=== PATIENT | female | born 1930 | race Caucasian/White ===

== ENCOUNTER → 2017-09-02 | Outpatient (CLI) | payer OTHER ==
[2016-08-16 06:52] VITALS: BP 144/78
--- NOTE | 2017-09-03 14:39 | MG ---
HISTORY: SCREENING Comparison: Multiple priors dating back to April 28, 2008 FINDINGS: Bilateral CC and MLO projections of the right and left breast were obtained. Scattered fibroglandula r tissue is seen to be present without significant interval change. No suspicious architectural dist ortion, mass or clustered microcalcifications can be observed to suggest malignancy. No skin thicken ing or nipple retraction is appreciated. No pathological lymphadenopathy can be identified. Benign- appearing calcifications are noted within the right and left breast. IMPRESSION: NO RADIOGRAPHIC EVIDENCE OF MALIGNANCY. ACR CATEGORY 2 - benign findings. FOLLOW-UP EXAM 1 YEAR. Diagnostic CAD was utilized and reviewed. * 0 (ZERO) - ASSESSMENT INCOMPLETE; ADDITIONAL IMAGING IS NEEDED. * 1/1 (ONE) - NEGATIVE. * 2/II (TWO) - BENIGN FINDINGS. * 3/III (THREE) - PROBABLY BENIGN FINDING; SHORT INTERVAL FOLLOW-UP SUGGESTED. * 4/IV (FOUR) - SUSPICIOUS ABNORMALITY; BIOPSY SHOULD BE CONSIDERED. * 5/V - HIGHLY SUSPICIOUS OF MALIGNANCY; BIOPSY SHOULD BE PERFORMED. A NEGATIVE X-RAY REPORT SHOULD NOT DELAY BIOPSY IF A DOMINANT OR CLINICALLY SUSPICIOUS MASS IS PRESENT; 4 TO 8 PERCENT OF CANCERS ARE NOT IDENTIFIED BY X-RAY. A NEGA TIVE REPORT MAY REINFORCE THE CLINICAL IMPRESSION. ADENOSIS AND DENSE BREASTS MAY OBSCURE AN UNDERLY ING NEOPLASM. Reported By:
== END ==
LOC: RAD 15:08
PROVIDERS: ATTEND Internal Medicine
DX: Z12.31 Encounter for screening mammogram for malignant neoplasm of breast (principal)
CPT/HCPCS: 77067

== ENCOUNTER 2021-12-01 11:58 | Observation (INO) ==
[2021-12-01] MEDS ORDERED: NS 1,000 ML IV 1,000 ML ONE (14:24)
[2021-12-01] MEDS: NS 1,000 ML IV 1,000 ML IV SCH (14:31)
[2021-12-01 14:41] LABS: BASOPHILS % (AUTO) 0.5 % (0.2-1.0); EOSINOPHILS % (AUTO) 0.5 % (0.9-2.9); HEMOGLOBIN 12.2 g/dL (12.0-16.0); LYMPHOCYTES # (AUTO) 0.9 X10^3/uL (1.3-2.9); LYMPHOCYTES % (AUTO) 15.7 % (21.0-51.0); MEAN CORPUSCULAR HEMOGLOBIN 26.9 pg (27.0-34.0); MEAN CORPUSCULAR VOLUME 81.4 fL (80.0-100.0); MEAN PLATELET VOLUME 8.7 fL (7.4-11.0); MONOCYTES # (AUTO) 0.6 x10^3/uL (0.3-0.8); MONOCYTES % (AUTO) 10.1 % (0.0-13.0); NEUTROPHILS # (AUTO) 4.2 x10^3/uL (2.2-4.8); NEUTROPHILS % (AUTO) 73.2 % (42.0-75.0); RED BLOOD COUNT 4.55 X10^6/uL (3.5-5.4); WHITE BLOOD COUNT 5.7 X10^3/uL (3.6-10.0)
[2021-12-01 14:52] LABS: ALANINE AMINOTRANSFERASE 24 Units/L (12-78); ALBUMIN 3.8 g/dL (3.4-5.0); ALKALINE PHOSPHATASE 43 Units/L (46-116); ASPARTATE AMINO TRANSFERASE 27 Units/L (15-37); BLOOD UREA NITROGEN 43 mg/dL (7-18); CARBON DIOXIDE 25.3 mmol/L (21-32); CHLORIDE 101 mmol/L (98-107); COR NA(FOR HYPERGLY) 139 mmol/L (136-145); CREATININE 2.39 mg/dL (0.55-1.02); ERYTHROCYTE SEDIMENTATION RATE 41 MM/HOUR (0-20); SODIUM 138 mmol/L (136-145); TOTAL PROTEIN 7.9 g/dL (6.4-8.2); eGFR NON BLACK RACES 20 (>60)
[2021-12-01 14:56] LABS: LACTIC ACID 1.9 mmol/L (0.4-2.0)
--- NOTE | 2021-12-01 15:05 | RAD ---
HISTORYAMSSTUDYCHEST, 1 VIEWCOMPARISONNone availableTECHNIQUEChest radiographic imaging, AP portable projection, 1 imageFINDINGSNo cardiomegaly.No focal airspace disease.No pleural effusion.No pneumothorax.No acute osseous abnormality.IMPRESSIONNo imaging findings of acute cardiopulmonary disease.Electronically signed by: Joaquim Day (Dec 01, 2021 15:04:07)
[2021-12-01] MEDS: ZOSYN VIAL 3.375 GRAMS 3.375 G in NS 100 ML IV 100 ML IV SCH ×2 (16:40→22:40)
[2021-12-01 16:52] VITALS: BMI 19.3
[2021-12-01] MEDS ORDERED: ULTRAM PO PRN (17:45)
--- NOTE | 2021-12-01 17:46 | DR.UPDATE ---
H&P Update History and Physical Update: History and Physical reviewed and patient examined. Changes noted: Yes with the following: IS A YEAR OLD PATIENT OF OURS. SHE PRESENTED TO THE OFFICE FOR A FOLLOW UP DUE TO LEFT FOOT/GREAT TOE CELLULITIS. PATIENT BEGAN HAVING REDNESS AND SWELLING TO THE LEFT FOOT ON 11/25/2021. THERE IS ALSO A SKIN TEAR NOTED TO THE LEFT LOWER EXTREMITY. SHE HAS BEEN TAKING BACTRIM DS 1 TABLET BID AND ANTIBIOTIC OINTMENT. SHE DENIES IMPROVEMENT IN SYMPTOMS DESPITE COMPLIANCE WITH MEDICATIONS. PATIENTS DAUGHTER ALSO REPORTS THAT PATIENT HAS BEEN FALLING AT HOME, HAVING HALLUCINATIONS, AND HAS HAD DECREASED ORAL INTAKE. PATIENT WAS RECENTLY STARTED ON DULOXETINE. DECISION WAS MADE TO ADMIT PATIENT TO THE HOSPTIAL FOR FURTHER EVALUATION AND TREATMENT OF LEFT LOWER EXTREMITY CELLULITIS, FAILED OUTPATIENT TREATMENT, DEHYDRATION, AND AMS. PMH INCLUDES: ANEMIA, HTN, OAB, VENOUS INSUFFICIENCY, APPENDECTOMY. ON ADMISSION, HER VITALS WERE 98.6-64-18-98%-137/61. LABS WERE OBTAINED. WBC 5.7, HGB 12.2, HCT 37, SODIUM 138, POTASSIUM 4.6, CHLORIDE 101, BUN 43, CREATININE 2.39, GLUCOSE 121, L ACTIC ACID 1.9, ALK PHOS 43, CRP <0.50, TOTAL PROTEIN 7.9, ALBUMIN 3.8. COVID-19 NEGATIVE. BLOOD CULTURES WERE SET UP. A CHEST XRAY WAS OBTAINED AND REVEALED: No imaging findings of acute cardiopulmonary disease. WE WILL START NORMAL SALINE AT 80 ML/HR, ZOSYN 3.375G IV TID, GENTAMICIN CREAM BID, AND WILL RESUME HER HOME MEDICATIONS APPROPRIATE. WE WILL OBTAIN A BRAIN CT WITHOUT CONTRAST. WE WILL HAVE PHYSICAL THERAPY EVALUATE PATIENT. OTHERWISE, WE PLAN TO FOLLOW UP WITH AM LABS AND CONTINUE TO MONITOR. TIME SPENT ON CLINICAL ASSESSMENT, REVIEWING LABS AND IMAGING, DECISION MAKING, AND DOCUMENTATION WAS GREATER THAN 75 MINUTES. H&P Reviewed: Yes Patient was examined?: Yes
[2021-12-01] MEDS ORDERED: METOPROLOL TARTRATE 50 MG PO SCH (21:00)
[2021-12-01] MEDS: FLUOCINONIDE 0.05% EXT SCH (22:30)
[2021-12-01] MEDS: GENTAMICIN TOPICAL CRM TOP SCH (22:39)
[2021-12-01] MEDS: NORVASC TAB 5 MG PO SCH (22:40)
[2021-12-01] MEDS: LIPITOR TAB 40 MG PO SCH (22:40)
[2021-12-01] MEDS: LOPRESSOR TAB 50 MG PO SCH (22:40)
[2021-12-01 23:51] LABS: BILIRUBIN,URINE NEGATIVE (NEGATIVE); BLOOD/HEMOGLOBIN,URINE 1+ (NEGATIVE); GLUCOSE, URINE NEGATIVE (NEGATIVE); KETONES,URINE NEGATIVE (NEGATIVE); LEUKOCYTE ESTERASE ,URINE NEGATIVE (NEGATIVE); NITRITES,URINE NEGATIVE (NEGATIVE); PROTEIN,URINE 1+ (NEGATIVE); UROBILINOGEN,URINE NORMAL (NORMAL)
[2021-12-01 23:58] LABS: APPEARANCE,URINE CLEAR (CLEAR); BACTERIA,URINE NEGATIVE /HPF (NEGATIVE); COLOR,URINE STRAW (YELLOW); RBC,URINE 0-2 /HPF (0-3); SQUAMOUS EPITHELIAL CELL,UR RARE /HPF (NEGATIVE)
[2021-12-02] MEDS: NS 1,000 ML IV 1,000 ML IV SCH ×3 (04:00→17:28)
[2021-12-02] MEDS: ZOSYN VIAL 3.375 GRAMS 3.375 G in NS 100 ML IV 100 ML IV SCH ×3 (06:15→21:51)
[2021-12-02 06:50] LABS: BASOPHILS % (AUTO) 1.3 % (0.2-1.0); EOSINOPHILS # (AUTO) 0.2 x10^3/uL (0.0-0.2); EOSINOPHILS % (AUTO) 5.2 % (0.9-2.9); HEMATOCRIT 33.7 % (36.0-47.0); HEMOGLOBIN 11.4 g/dL (12.0-16.0); LYMPHOCYTES % (AUTO) 26.9 % (21.0-51.0); MEAN CORPUSCULAR HEMOGLOBIN 27.5 pg (27.0-34.0); MEAN CORPUSCULAR HGB CONC 33.9 g/dL (33.0-35.0); MEAN CORPUSCULAR VOLUME 81.1 fL (80.0-100.0); MEAN PLATELET VOLUME 8.9 fL (7.4-11.0); MONOCYTES # (AUTO) 0.5 x10^3/uL (0.3-0.8); MONOCYTES % (AUTO) 12.6 % (0.0-13.0); RED BLOOD COUNT 4.15 X10^6/uL (3.5-5.4); RED CELL DISTRIBUTION WIDTH 17.9 % (11.6-16.5); WHITE BLOOD COUNT 3.7 X10^3/uL (3.6-10.0)
[2021-12-02 07:06] LABS: ALANINE AMINOTRANSFERASE 21 Units/L (12-78); ALBUMIN 3.2 g/dL (3.4-5.0); ALKALINE PHOSPHATASE 35 Units/L (46-116); ASPARTATE AMINO TRANSFERASE 23 Units/L (15-37); BLOOD UREA NITROGEN 33 mg/dL (7-18); CALCIUM 8.4 mg/dL (8.5-10.1); CARBON DIOXIDE 26.5 mmol/L (21-32); CHLORIDE 106 mmol/L (98-107); CREATININE 1.67 mg/dL (0.55-1.02); SODIUM 141 mmol/L (136-145); TOTAL PROTEIN 6.8 g/dL (6.4-8.2); eGFR NON BLACK RACES 31 (>60)
[2021-12-02] MEDS: LOPRESSOR TAB 50 MG PO SCH ×2 (08:39→20:37)
[2021-12-02] MEDS: GENTAMICIN TOPICAL CRM TOP SCH ×2 (08:39→20:36)
[2021-12-02] MEDS: COZAAR PO SCH (08:39)
[2021-12-02] MEDS: SYNTHROID 88 mcg TAB PO SCH (08:40)
[2021-12-02] MEDS: ZyrTEC TAB 10 MG PO SCH (08:40)
[2021-12-02] MEDS: PLAVIX PO SCH (08:40)
[2021-12-02] MEDS: NORVASC TAB 5 MG PO SCH ×2 (08:40→20:36)
[2021-12-02] MEDS: FLUOCINONIDE 0.05% EXT SCH ×2 (08:57→20:36)
[2021-12-02] MEDS: LIPITOR TAB 40 MG PO SCH (20:38)
[2021-12-03] MEDS ORDERED: ATIVAN INJ 2 MG VIAL ONE (02:36)
[2021-12-03] MEDS: ATIVAN INJ 2 MG VIAL IVP PRN ×2 (02:40→09:38)
[2021-12-03] MEDS: NS 1,000 ML IV 1,000 ML IV SCH (06:23)
[2021-12-03] MEDS: ZOSYN VIAL 3.375 GRAMS 3.375 G in NS 100 ML IV 100 ML IV SCH ×3 (06:24→21:49)
[2021-12-03 06:38] LABS: BASOPHILS % (AUTO) 0.6 % (0.2-1.0); EOSINOPHILS # (AUTO) 0.1 x10^3/uL (0.0-0.2); EOSINOPHILS % (AUTO) 0.9 % (0.9-2.9); HEMATOCRIT 35.2 % (36.0-47.0); HEMOGLOBIN 11.7 g/dL (12.0-16.0); LYMPHOCYTES # (AUTO) 0.7 X10^3/uL (1.3-2.9); MEAN CORPUSCULAR HEMOGLOBIN 26.9 pg (27.0-34.0); MEAN CORPUSCULAR HGB CONC 33.1 g/dL (33.0-35.0); MEAN CORPUSCULAR VOLUME 81.3 fL (80.0-100.0); MEAN PLATELET VOLUME 8.6 fL (7.4-11.0); MONOCYTES # (AUTO) 0.4 x10^3/uL (0.3-0.8); MONOCYTES % (AUTO) 7.6 % (0.0-13.0); NEUTROPHILS # (AUTO) 4.4 x10^3/uL (2.2-4.8); NEUTROPHILS % (AUTO) 78.9 % (42.0-75.0); RED BLOOD COUNT 4.33 X10^6/uL (3.5-5.4); WHITE BLOOD COUNT 5.5 X10^3/uL (3.6-10.0)
[2021-12-03 06:59] LABS: ALANINE AMINOTRANSFERASE 19 Units/L (12-78); ALBUMIN 3.4 g/dL (3.4-5.0); ALKALINE PHOSPHATASE 36 Units/L (46-116); ASPARTATE AMINO TRANSFERASE 24 Units/L (15-37); BLOOD UREA NITROGEN 28 mg/dL (7-18); CALCIUM 8.8 mg/dL (8.5-10.1); CARBON DIOXIDE 24.2 mmol/L (21-32); CHLORIDE 105 mmol/L (98-107); COR NA(FOR HYPERGLY) 142 mmol/L (136-145); CREATININE 1.41 mg/dL (0.55-1.02); SODIUM 142 mmol/L (136-145); TOTAL PROTEIN 7.2 g/dL (6.4-8.2); eGFR NON BLACK RACES 37 (>60)
[2021-12-03] MEDS: FLUOCINONIDE 0.05% EXT SCH ×2 (09:11→21:38)
[2021-12-03] MEDS: LOPRESSOR TAB 50 MG PO SCH ×2 (09:11→21:39)
[2021-12-03] MEDS: COZAAR PO SCH (09:11)
[2021-12-03] MEDS: GENTAMICIN TOPICAL CRM TOP SCH ×2 (09:11→21:39)
[2021-12-03] MEDS: NORVASC TAB 5 MG PO SCH ×2 (09:11→21:39)
[2021-12-03] MEDS: ZyrTEC TAB 10 MG PO SCH (09:12)
[2021-12-03] MEDS: SYNTHROID 88 mcg TAB PO SCH (09:12)
[2021-12-03] MEDS: PLAVIX PO SCH (09:39)
--- NOTE | 2021-12-03 10:26 | PCM.PROG ---
Progress Note - Progress Note for Day of Date of Exam: 12/02/21 - Subjective Subjective: IS CURRENTLY BEING TREATED FOR LEFT LOWER EXTREMITY CELLULITIS, DEHYDRATION, ALTERED MENTAL STATUS, AND GENERALIZED WEAKNESS. TODAY, SHE IS ALERT, LYING IN BED ON MORNING ROUNDS. SHE IS DISORIENTED THIS MORNING, BUT DOES NOT APPEAR TO BE IN ANY DISTRESS. SHE DENIES PAIN OR OTHER COMPLAINTS. STAFF REPORTS THAT SHE DOES HAVE AN UNSTEADY GAIT WHEN AMBULATING AND REQUIRES ASSISTANCE. ON EXAMINATION, HEART IS REGULAR IN RATE AND RHYTHM. BILATERAL LUNGS NOTED WITH DIMINISHED LUNG SOUNDS THROUGHOUT. ABDOMEN IS ROUND, SOFT, AND NON- TENDER WITH NORMAL BOWEL SOUNDS NOTED IN ALL QUADRANTS. LEFT LOWER FOOT AND GREAT TOE NOTED WITH ERYTHEMA AND EDEMA. REDNESS HAS SLIGHTLY DECREASED SINCE ADMISSION. PATIENT ALSO HAS A SMALL LACERATION TO THE POSTERIOR SCALP. NO BLEEDING OR DRAINAGE NOTED. THERE IS A SKIN TEAR TO THE RIGHT ELBOW. NO BLEEDING OR S/SX INFECTION NOTED. HER VITALS THIS MORNING ARE: 97.6-60-18-95%-114/54. LABS WERE OBTAINED. ABNORMAL LAB VALUES INCLUDE THE FOLLOWING: HGB 11.7, HCT 35.2, BUN 28, CREATININE 1.41, GLUCOSE 112, ALK PHOS 36. BLOOD CULTURES ARE PENDING. A BRAIN CT WITHOUT CONTRAST WAS OBTAINED AND REVEALED: NO ACUTE INTRACRANIAL FINDINGS. SHE IS CURRENTLY RECEIVING NORMAL SALINE AT 80 ML/HR, ZOSYN 3.375G IV TID, GENTAMICIN CREAM BID, AND HER HOME MEDICATIONS OF NORVASC, LIPITOR, ZYRETC, PLAVIX, SYNTHROID, COZAAR, LOPRESSOR, AND ULTRAM WERE RESUMED. WE WILL CONTINUE WITH CURRENT PLAN OF CARE TODAY. PHYSICAL THERAPY WILL WORK WITH PATIENT. OTHERWISE, WE PLAN TO FOLLOW UP WITH AM LABS AND CONTINUE TO MONITOR. TIME SPENT ON CLINICAL ASSESSMENT, REVIEWING LABS AND IMAGING, DECISION MAKING, AND DOCUMENTATION WAS GREATER THAN 45 MINUTES. - Past Medical Family Social History Past Med/Fam/Surg Hx: No changes since H&P Allergies: Allergies No Known Drug Allergies Allergy (Verified 12/01/21 16:00) - Review of Systems ROS: No change since H&P - Vital Signs and I&O's Vital Signs: Temperature 97.9 F Pulse Rate [Left Brachial] 84 Respiratory Rate 20 Blood Pressure [Right Arm] 151/72 Blood Pressure [Left Arm] 176/70 Blood Pressure 144/78 O2 Sat by Pulse Oximetry 94 Intake and Output: Intake & Output 11/30/21 12/01/21 12/02/21 12/03/21 11:59 11:59 11:59 11:59 Intake Total 1550 / 1550 3721 / 3721 Balance 1550 / 1550 3721 / 3721 - Physical Exam Oriented: Not Oriented Eyes: Normal Ear: Normal Nose: Normal Throat: Normal Respiratory: Generalized, Diminished Cardiovascular: Edema (LEFT LOWER EXTREMITY ) : Normal Auscultation: Bowel Sounds: Normal Palpation: Normal Tenderness: Normal Skin: Decreased Turgur, Red, Tender, Wound (LEFT FOOT, GREAT TOE ) Musculoskeletal: Normal Psychiatric: Normal Mood Description: Calm Affect: Normal Speech Pattern: Clear, Inappropriate - Laboratory and Diagnostics Result Diagrams: 12/03/21 06:06 12/03/21 06:06 Labs: 12/01/21 14:20 Blood Blood Culture - Preliminary Laboratory WBC 5.5 X10^3/uL (3.6-10.0) 12/03/21 06:06 RBC 4.33 X10^6/uL (3.5-5.4) 12/03/21 06:06 Hgb 11.7 g/dL (12.0-16.0) L 12/03/21 06:06 Hct 35.2 % (36.0-47.0) L 12/03/21 06:06 MCV 81.3 fL (80.0-100.0) 12/03/21 06:06 MCH 26.9 pg (27.0-34.0) L 12/03/21 06:06 MCHC 33.1 g/dL (33.0-35.0) 12/03/21 06:06 RDW 18.0 % (11.6-16.5) H 12/03/21 06:06 Plt Count 264 X10^3/uL (150.0-450.0) 12/03/21 06:06 MPV 8.6 fL (7.4-11.0) 12/03/21 06:06 Neut % (Auto) 78.9 % (42.0-75.0) H 12/03/21 06:06 Lymph % (Auto) 12.0 % (21.0-51.0) L 12/03/21 06:06 [place] % (Auto) 7.6 % (0.0-13.0) 12/03/21 06:06 Eos % (Auto) 0.9 % (0.9-2.9) 12/03/21 06:06 Baso % (Auto) 0.6 % (0.2-1.0) 12/03/21 06:06 Neut # (Auto) 4.4 x10^3/uL (2.2-4.8) 12/03/21 06:06 Lymph # (Auto) 0.7 X10^3/uL (1.3-2.9) L 12/03/21 06:06 [place] # (Auto) 0.4 x10^3/uL (0.3-0.8) 12/03/21 06:06 Eos # (Auto) 0.1 x10^3/uL (0.0-0.2) 12/03/21 06:06 Baso # (Auto) 0.0 X10^3/uL (0.0-0.1) 12/03/21 06:06 Absolute Nucleated RBC 0.1 /100WBC 12/03/21 06:06 ESR 41 MM/HOUR (0-20) H 12/01/21 14:20 PT 12.9 SECONDS (11.8-14.3) 12/01/21 14:20 INR Target Range - 12/01/21 14:20 INR 1.02 (0.8-1.3) 12/01/21 14:20 Sodium 142 mmol/L (136-145) 12/03/21 06:06 Corrected Sodium 142 mmol/L (136-145) 12/03/21 06:06 Potassium 3.9 mmol/L (3.5-5.1) 12/03/21 06:06 Chloride 105 mmol/L (98-107) 12/03/21 06:06 Carbon Dioxide 24.2 mmol/L (21-32) 12/03/21 06:06 BUN 28 mg/dL (7-18) H 12/03/21 06:06 Creatinine 1.41 mg/dL (0.55-1.02) H 12/03/21 06:06 Est GFR (MDRD) Af Amer 45 (>60) L 12/03/21 06:06 Est GFR (MDRD) Non-Af 37 (>60) L 12/03/21 06:06 Glucose 112 mg/dL (65-99) H 12/03/21 06:06 Lactic Acid 1.9 mmol/L (0.4-2.0) 12/01/21 14:20 Calcium 8.8 mg/dL (8.5-10.1) 12/03/21 06:06 Corrected Calcium TNP 12/03/21 06:06 Total Bilirubin 0.80 mg/dL (0.2-1.0) 12/03/21 06:06 AST 24 Units/L (15-37) 12/03/21 06:06 ALT 19 Units/L (12-78) 12/03/21 06:06 Alkaline Phosphatase 36 Units/L (46-116) L 12/03/21 06:06 C-Reactive Protein < 0.50 mg/L (0-3.0) 12/01/21 14:20 Total Protein 7.2 g/dL (6.4-8.2) 12/03/21 06:06 Albumin 3.4 g/dL (3.4-5.0) 12/03/21 06:06 Globulin 3.8 g/dL (2.5-4.5) 12/03/21 06:06 Albumin/Globulin Ratio 0.9 Ratio (1.1-2.1) L 12/03/21 06:06 Specimen Type Clean catch urine 12/01/21 23:39 Urine Color Straw (YELLOW) 12/01/21 23:39 Urine Appearance Clear (CLEAR) 12/01/21 23:39 Urine pH 7.0 (5.0 - 8.0) 12/01/21 23:39 Ur Specific [place] 1.015 (1.000-1.030) 12/01/21 23:39 Urine Protein 1+ (NEGATIVE) 12/01/21 23:39 Urine Glucose (UA) Negative (NEGATIVE) 12/01/21 23:39 Urine Ketones Negative (NEGATIVE) 12/01/21 23:39 Urine Occult Blood 1+ (NEGATIVE) 12/01/21 23:39 Urine Nitrite Negative (NEGATIVE) 12/01/21 23:39 Urine Bilirubin Negative (NEGATIVE) 12/01/21 23:39 Urine Urobilinogen Normal (NORMAL) 12/01/21 23:39 Ur Leukocyte Esterase Negative (NEGATIVE) 12/01/21 23:39 Urine RBC 0-2 /HPF (0-3) 12/01/21 23:39 Urine WBC 0-2 /HPF (0-5) 12/01/21 23:39 Ur Squamous Epith Cells Rare /HPF (NEGATIVE) 12/01/21 23:39 Urine Bacteria Negative /HPF (NEGATIVE) 12/01/21 23:39 Urine Mucus Rare /HPF (NEGATIVE) 12/01/21 23:39 Ur Culture Indicated? No/not indicated 12/01/21 23:39 SARS-CoV-2 (PCR) Negative (NEGATIVE) 12/01/21 20:55 Influenza Type A (PCR) Negative (NEGATIVE) 12/01/21 20:55 Influenza Type B (PCR) Negative (NEGATIVE) 12/01/21 20:55 RSV (PCR) Negative (NEGATIVE) 12/01/21 20:55 SARS CoV-2 RNA Rapid PEDRO Negative (NEGATIVE) 12/01/21 12:37 - Plan (1) Left leg cellulitis Status: Acute Plan: WOUND CARE, PHYSICAL THERAPY, NORMAL SALINE AT 80 ML/HR, ZOSYN 3.375G IV TID, GENTAMICIN CREAM BID, RESUME HOME MEDS (2) Dehydration Status: Acute (3) Altered mental status Status: Acute Qualifiers: Altered mental status type: transient alteration of awareness Qualified Code(s): R40.4 - Transient alteration of awareness (4) Hypertension Status: Chronic Qualifiers: Hypertension type: primary hypertension Qualified Code(s): I10 - Essential (primary) hypertension (5) Anemia Status: Chronic Qualifiers: Anemia type: unspecified type Qualified Code(s): D64.9 - Anemia, unspecified (6) Venous insufficiency Status: Chronic
--- NOTE | 2021-12-03 14:08 | PCM.PROG ---
Progress Note - Progress Note for Day of Date of Exam: 12/03/21 - Subjective Subjective: IS CURRENTLY BEING TREATED FOR LEFT LOWER EXTREMITY CELLULITIS, DEHYDRATION, ALTERED MENTAL STATUS, AND GENERALIZED WEAKNESS. TODAY, SHE IS ALERT, LYING IN BED ON MORNING ROUNDS. SHE IS DISORIENTED THIS MORNING, BUT DOES NOT APPEAR TO BE IN ANY DISTRESS. SHE DENIES PAIN OR OTHER COMPLAINTS. STAFF REPORTS THAT SHE DOES HAVE AN UNSTEADY GAIT WHEN AMBULATING AND REQUIRES ASSISTANCE. ON EXAMINATION, HEART IS REGULAR IN RATE AND RHYTHM. BILATERAL LUNGS NOTED WITH DIMINISHED LUNG SOUNDS THROUGHOUT. ABDOMEN IS ROUND, SOFT, AND NON- TENDER WITH NORMAL BOWEL SOUNDS NOTED IN ALL QUADRANTS. LEFT LOWER FOOT AND GREAT TOE NOTED WITH ERYTHEMA AND EDEMA. REDNESS HAS SLIGHTLY DECREASED SINCE ADMISSION. PATIENT ALSO HAS A SMALL LACERATION TO THE POSTERIOR SCALP. NO BLEEDING OR DRAINAGE NOTED. THERE IS A SKIN TEAR TO THE RIGHT ELBOW. NO BLEEDING OR S/SX INFECTION NOTED. HER VITALS THIS MORNING ARE: 97.9-84-20-94%-176/70. LABS WERE OBTAINED. ABNORMAL LAB VALUES INCLUDE THE FOLLOWING: HGB 11.7, HCT 35.2, BUN 28, CREATININE 1.41, GLUCOSE 112, ALK PHOS 36. BLOOD CULTURES ARE PENDING. SHE IS CURRENTLY RECEIVING NORMAL SALINE AT 80 ML/HR, ZOSYN 3.375G IV TID, GENTAMICIN CREAM BID, AND HER HOME MEDICATIONS OF NORVASC, LIPITOR, ZYRETC, PLAVIX, SYNTHROID, COZAAR, LOPRESSOR, AND ULTRAM WERE RESUMED. WE WILL CONTINUE WITH CURRENT PLAN OF CARE TODAY. PHYSICAL THERAPY WILL WORK WITH PATIENT. OTHERWISE, WE PLAN TO FOLLOW UP WITH AM LABS AND CONTINUE TO MONITOR. TIME SPENT ON CLINICAL ASSESSMENT, REVIEWING LABS AND IMAGING, DECISION MAKING, AND DOCUMENTATION WAS GREATER THAN 45 MINUTES. - Past Medical Family Social History Past Med/Fam/Surg Hx: No changes since H&P Allergies: Allergies No Known Drug Allergies Allergy (Verified 12/01/21 16:00) - Review of Systems ROS: No change since H&P - Vital Signs and I&O's Vital Signs: Temperature 97.4 F Pulse Rate [Left Brachial] 57 Respiratory Rate 18 Blood Pressure [Right Arm] 151/72 Blood Pressure [Left Arm] 105/53 Blood Pressure 144/78 O2 Sat by Pulse Oximetry 95 Intake and Output: Intake & Output 02/12/02/21 12/03/21 12/04/21 11:59 11:59 11:59 11:59 Intake Total 1550 / 1550 3721 / 3721 Balance 1550 / 1550 3721 / 3721 - Physical Exam Oriented: Not Oriented Eyes: Normal Ear: Normal Nose: Normal Throat: Normal Respiratory: Generalized, Diminished Cardiovascular: Edema (LEFT LOWER EXTREMITY ) : Normal Auscultation: Bowel Sounds: Normal Tenderness: Normal Skin: Decreased Turgur, Red, Tender, Wound (LEFT FOOT, GREAT TOE ) Musculoskeletal: Normal Psychiatric: Normal Mood Description: Calm Affect: Normal Speech Pattern: Clear, Inappropriate - Laboratory and Diagnostics Result Diagrams: 12/03/21 06:06 12/03/21 06:06 Labs: 12/01/21 14:20 Blood Blood Culture - Preliminary Laboratory WBC 5.5 X10^3/uL (3.6-10.0) 12/03/21 06:06 RBC 4.33 X10^6/uL (3.5-5.4) 12/03/21 06:06 Hgb 11.7 g/dL (12.0-16.0) L 12/03/21 06:06 Hct 35.2 % (36.0-47.0) L 12/03/21 06:06 MCV 81.3 fL (80.0-100.0) 12/03/21 06:06 MCH 26.9 pg (27.0-34.0) L 12/03/21 06:06 MCHC 33.1 g/dL (33.0-35.0) 12/03/21 06:06 RDW 18.0 % (11.6-16.5) H 12/03/21 06:06 Plt Count 264 X10^3/uL (150.0-450.0) 12/03/21 06:06 MPV 8.6 fL (7.4-11.0) 12/03/21 06:06 Neut % (Auto) 78.9 % (42.0-75.0) H 12/03/21 06:06 Lymph % (Auto) 12.0 % (21.0-51.0) L 12/03/21 06:06 [place] % (Auto) 7.6 % (0.0-13.0) 12/03/21 06:06 Eos % (Auto) 0.9 % (0.9-2.9) 12/03/21 06:06 Baso % (Auto) 0.6 % (0.2-1.0) 12/03/21 06:06 Neut # (Auto) 4.4 x10^3/uL (2.2-4.8) 12/03/21 06:06 Lymph # (Auto) 0.7 X10^3/uL (1.3-2.9) L 12/03/21 06:06 [place] # (Auto) 0.4 x10^3/uL (0.3-0.8) 12/03/21 06:06 Eos # (Auto) 0.1 x10^3/uL (0.0-0.2) 12/03/21 06:06 Baso # (Auto) 0.0 X10^3/uL (0.0-0.1) 12/03/21 06:06 Absolute Nucleated RBC 0.1 /100WBC 12/03/21 06:06 ESR 41 MM/HOUR (0-20) H 12/01/21 14:20 PT 12.9 SECONDS (11.8-14.3) 12/01/21 14:20 INR Target Range - 12/01/21 14:20 INR 1.02 (0.8-1.3) 12/01/21 14:20 Sodium 142 mmol/L (136-145) 12/03/21 06:06 Corrected Sodium 142 mmol/L (136-145) 12/03/21 06:06 Potassium 3.9 mmol/L (3.5-5.1) 12/03/21 06:06 Chloride 105 mmol/L (98-107) 12/03/21 06:06 Carbon Dioxide 24.2 mmol/L (21-32) 12/03/21 06:06 BUN 28 mg/dL (7-18) H 12/03/21 06:06 Creatinine 1.41 mg/dL (0.55-1.02) H 12/03/21 06:06 Est GFR (MDRD) Af Amer 45 (>60) L 12/03/21 06:06 Est GFR (MDRD) Non-Af 37 (>60) L 12/03/21 06:06 Glucose 112 mg/dL (65-99) H 12/03/21 06:06 Lactic Acid 1.9 mmol/L (0.4-2.0) 12/01/21 14:20 Calcium 8.8 mg/dL (8.5-10.1) 12/03/21 06:06 Corrected Calcium TNP 12/03/21 06:06 Total Bilirubin 0.80 mg/dL (0.2-1.0) 12/03/21 06:06 AST 24 Units/L (15-37) 12/03/21 06:06 ALT 19 Units/L (12-78) 12/03/21 06:06 Alkaline Phosphatase 36 Units/L (46-116) L 12/03/21 06:06 C-Reactive Protein < 0.50 mg/L (0-3.0) 12/01/21 14:20 Total Protein 7.2 g/dL (6.4-8.2) 12/03/21 06:06 Albumin 3.4 g/dL (3.4-5.0) 12/03/21 06:06 Globulin 3.8 g/dL (2.5-4.5) 12/03/21 06:06 Albumin/Globulin Ratio 0.9 Ratio (1.1-2.1) L 12/03/21 06:06 Specimen Type Clean catch urine 12/01/21 23:39 Urine Color Straw (YELLOW) 12/01/21 23:39 Urine Appearance Clear (CLEAR) 12/01/21 23:39 Urine pH 7.0 (5.0 - 8.0) 12/01/21 23:39 Ur Specific [place] 1.015 (1.000-1.030) 12/01/21 23:39 Urine Protein 1+ (NEGATIVE) 12/01/21 23:39 Urine Glucose (UA) Negative (NEGATIVE) 12/01/21 23:39 Urine Ketones Negative (NEGATIVE) 12/01/21 23:39 Urine Occult Blood 1+ (NEGATIVE) 12/01/21 23:39 Urine Nitrite Negative (NEGATIVE) 12/01/21 23:39 Urine Bilirubin Negative (NEGATIVE) 12/01/21 23:39 Urine Urobilinogen Normal (NORMAL) 12/01/21 23:39 Ur Leukocyte Esterase Negative (NEGATIVE) 12/01/21 23:39 Urine RBC 0-2 /HPF (0-3) 12/01/21 23:39 Urine WBC 0-2 /HPF (0-5) 12/01/21 23:39 Ur Squamous Epith Cells Rare /HPF (NEGATIVE) 12/01/21 23:39 Urine Bacteria Negative /HPF (NEGATIVE) 12/01/21 23:39 Urine Mucus Rare /HPF (NEGATIVE) 12/01/21 23:39 Ur Culture Indicated? No/not indicated 12/01/21 23:39 SARS-CoV-2 (PCR) Negative (NEGATIVE) 12/01/21 20:55 Influenza Type A (PCR) Negative (NEGATIVE) 12/01/21 20:55 Influenza Type B (PCR) Negative (NEGATIVE) 12/01/21 20:55 RSV (PCR) Negative (NEGATIVE) 12/01/21 20:55 SARS CoV-2 RNA Rapid PEDRO Negative (NEGATIVE) 12/01/21 12:37 - Plan (1) Left leg cellulitis Status: Acute Plan: WOUND CARE, PHYSICAL THERAPY, NORMAL SALINE AT 80 ML/HR, ZOSYN 3.375G IV TID, GENTAMICIN CREAM BID, RESUME HOME MEDS (2) Dehydration Status: Acute (3) Altered mental status Status: Acute Qualifiers: Altered mental status type: transient alteration of awareness Qualified Code(s): R40.4 - Transient alteration of awareness (4) Hypertension Status: Chronic Qualifiers: Hypertension type: primary hypertension Qualified Code(s): I10 - Essential (primary) hypertension (5) Anemia Status: Chronic Qualifiers: Anemia type: unspecified type Qualified Code(s): D64.9 - Anemia, unspecified (6) Venous insufficiency Status: Chronic
[2021-12-03] MEDS: LIPITOR TAB 40 MG PO SCH (21:39)
[2021-12-04] MEDS: ZOSYN VIAL 3.375 GRAMS 3.375 G in NS 100 ML IV 100 ML IV SCH ×3 (05:09→21:22)
[2021-12-04 06:59] LABS: BASOPHILS % (AUTO) 0.9 % (0.2-1.0); EOSINOPHILS # (AUTO) 0.3 x10^3/uL (0.0-0.2); EOSINOPHILS % (AUTO) 6.5 % (0.9-2.9); HEMOGLOBIN 12.1 g/dL (12.0-16.0); LYMPHOCYTES # (AUTO) 0.8 X10^3/uL (1.3-2.9); LYMPHOCYTES % (AUTO) 16.3 % (21.0-51.0); MEAN CORPUSCULAR HEMOGLOBIN 27.5 pg (27.0-34.0); MEAN CORPUSCULAR HGB CONC 33.6 g/dL (33.0-35.0); MEAN PLATELET VOLUME 8.7 fL (7.4-11.0); MONOCYTES # (AUTO) 0.4 x10^3/uL (0.3-0.8); NEUTROPHILS # (AUTO) 3.5 x10^3/uL (2.2-4.8); NEUTROPHILS % (AUTO) 69.3 % (42.0-75.0); RED CELL DISTRIBUTION WIDTH 17.8 % (11.6-16.5); WHITE BLOOD COUNT 5.1 X10^3/uL (3.6-10.0)
[2021-12-04] MEDS: NS 1,000 ML IV 1,000 ML IV SCH ×3 (07:08→20:30)
[2021-12-04 07:17] LABS: ALANINE AMINOTRANSFERASE 19 Units/L (12-78); ALKALINE PHOSPHATASE 34 Units/L (46-116); ASPARTATE AMINO TRANSFERASE 21 Units/L (15-37); BLOOD UREA NITROGEN 18 mg/dL (7-18); CALCIUM 8.5 mg/dL (8.5-10.1); CHLORIDE 107 mmol/L (98-107); COR CA(FOR HYPOALB) 9.3 mg/dL (8.5-10.1); CREATININE 1.01 mg/dL (0.55-1.02); SODIUM 143 mmol/L (136-145); TOTAL PROTEIN 6.6 g/dL (6.4-8.2); eGFR NON BLACK RACES 55 (>60)
[2021-12-04] MEDS: PLAVIX PO SCH (09:04)
[2021-12-04] MEDS: SYNTHROID 88 mcg TAB PO SCH (09:05)
[2021-12-04] MEDS: COZAAR PO SCH (09:05)
[2021-12-04] MEDS: LOPRESSOR TAB 50 MG PO SCH ×2 (09:05→20:30)
[2021-12-04] MEDS: NORVASC TAB 5 MG PO SCH ×2 (09:05→20:29)
[2021-12-04] MEDS: ZyrTEC TAB 10 MG PO SCH (09:05)
[2021-12-04] MEDS: GENTAMICIN TOPICAL CRM TOP SCH ×2 (09:12→20:29)
--- NOTE | 2021-12-04 09:38 | PCM.PROG ---
Progress Note - Progress Note for Day of Date of Exam: 12/04/21 - Subjective Subjective: IS CURRENTLY BEING TREATED FOR LEFT LOWER EXTREMITY CELLULITIS, DEHYDRATION, ALTERED MENTAL STATUS, AND GENERALIZED WEAKNESS. TODAY, SHE IS LYING IN BED WITH EYES CLOSED ON MORNING ROUNDS. SHE AWAKENS TO VERBAL STIMULI. SHE DENIES PAIN OR OTHER COMPLAINTS. STAFF REPORTS THAT SHE DOES HAVE AN UNSTEADY GAIT WHEN AMBULATING AND REQUIRES TWO PERSON ASSISTANCE. ON EXAMINATION, HEART IS REGULAR IN RATE AND RHYTHM. BILATERAL LUNGS NOTED WITH DIMINISHED LUNG SOUNDS THROUGHOUT. ABDOMEN IS ROUND, SOFT, AND NON-TENDER WITH NORMAL BOWEL SOUNDS NOTED IN ALL QUADRANTS. LEFT LOWER FOOT AND GREAT TOE NOTED WITH ERYTHEMA AND EDEMA. REDNESS HAS SLIGHTLY DECREASED SINCE ADMISSION. PATIENT ALSO HAS A SMALL LACERATION TO THE POSTERIOR SCALP. NO BLEEDING OR DRAINAGE NOTED. THERE IS A SKIN TEAR TO THE RIGHT ELBOW. NO BLEEDING OR S/SX INFECTION NOTED. HER VITALS THIS MORNING ARE: 97.9-73-18-97%-151/67. LABS WERE OBTAINED. WBC 5.1, HGB 12.1, HCT 36.0, SODIUM 143, POTASSIUM 4.0, BUN 18, CREATININE 1.01, GLUCOSE 69, CALCIUM 8.5, ALK PHOS 34, ALBUMIN 3.0. BLOOD CULTURES ARE PENDING. SHE IS CURRENTLY RECEIVING NORMAL SALINE AT 80 ML/HR, ZOSYN 3.375G IV TID, GENTAMICIN CREAM BID, AND HER HOME MEDICATIONS OF NORVASC, LIPITOR, ZYRETC, PLAVIX, SYNTHROID, COZAAR, LOPRESSOR, AND ULTRAM WERE RESUMED. WE WILL CONTINUE WITH CURRENT PLAN OF CARE TODAY. PHYSICAL THERAPY WILL CONTINUE TO WORK WITH ROBERT NELSON. OTHERWISE, WE PLAN TO FOLLOW UP WITH AM LABS AND CONTINUE TO MONITOR. TIME SPENT ON CLINICAL ASSESSMENT, REVIEWING LABS AND IMAGING, DECISION MAKING, AND DOCUMENTATION WAS GREATER THAN 45 MINUTES. - Past Medical Family Social History Past Med/Fam/Surg Hx: No changes since H&P Allergies: Allergies No Known Drug Allergies Allergy (Verified 12/01/21 16:00) - Review of Systems ROS: No change since H&P - Vital Signs and I&O's Vital Signs: Temperature 97.9 F Pulse Rate [Left Brachial] 73 Respiratory Rate 18 Blood Pressure [Right Arm] 151/67 Blood Pressure [Left Arm] 185/72 Blood Pressure 144/78 O2 Sat by Pulse Oximetry 97 Intake and Output: Intake & Output 12/01/21 12/02/21 12/03/21 12/04/21 11:59 11:59 11:59 11:59 Intake Total 1550 / 1550 3721 / 3721 1651 / 1651 Balance 1550 / 1550 3721 / 3721 1651 / 1651 - Physical Exam Oriented: Person Eyes: Normal Ear: Normal Nose: Normal Throat: Normal Respiratory: Generalized, Diminished Cardiovascular: Edema (LEFT LOWER EXTREMITY ) : Normal Auscultation: Bowel Sounds: Normal Tenderness: Normal Skin: Decreased Turgur, Red, Tender, Wound (LEFT FOOT, GREAT TOE ) Musculoskeletal: Normal Psychiatric: Normal Mood Description: Calm Affect: Normal Speech Pattern: Clear, Inappropriate - Laboratory and Diagnostics Result Diagrams: 12/04/21 05:47 12/04/21 05:47 Labs: 12/01/21 14:20 Blood Blood Culture - Preliminary Laboratory WBC 5.1 X10^3/uL (3.6-10.0) 12/04/21 05:47 RBC 4.40 X10^6/uL (3.5-5.4) 12/04/21 05:47 Hgb 12.1 g/dL (12.0-16.0) 12/04/21 05:47 Hct 36.0 % (36.0-47.0) 12/04/21 05:47 MCV 82.0 fL (80.0-100.0) 12/04/21 05:47 MCH 27.5 pg (27.0-34.0) 12/04/21 05:47 MCHC 33.6 g/dL (33.0-35.0) 12/04/21 05:47 RDW 17.8 % (11.6-16.5) H 12/04/21 05:47 Plt Count 242 X10^3/uL (150.0-450.0) 12/04/21 05:47 MPV 8.7 fL (7.4-11.0) 12/04/21 05:47 Neut % (Auto) 69.3 % (42.0-75.0) 12/04/21 05:47 Lymph % (Auto) 16.3 % (21.0-51.0) L 12/04/21 05:47 [place] % (Auto) 7.0 % (0.0-13.0) 12/04/21 05:47 Eos % (Auto) 6.5 % (0.9-2.9) H 12/04/21 05:47 Baso % (Auto) 0.9 % (0.2-1.0) 12/04/21 05:47 Neut # (Auto) 3.5 x10^3/uL (2.2-4.8) 12/04/21 05:47 Lymph # (Auto) 0.8 X10^3/uL (1.3-2.9) L 12/04/21 05:47 [place] # (Auto) 0.4 x10^3/uL (0.3-0.8) 12/04/21 05:47 Eos # (Auto) 0.3 x10^3/uL (0.0-0.2) H 12/04/21 05:47 Baso # (Auto) 0.0 X10^3/uL (0.0-0.1) 12/04/21 05:47 Absolute Nucleated RBC 0.1 /100WBC 12/04/21 05:47 ESR 41 MM/HOUR (0-20) H 12/01/21 14:20 PT 12.9 SECONDS (11.8-14.3) 12/01/21 14:20 INR Target Range - 12/01/21 14:20 INR 1.02 (0.8-1.3) 12/01/21 14:20 Sodium 143 mmol/L (136-145) 12/04/21 05:47 Corrected Sodium TNP 12/04/21 05:47 Potassium 4.0 mmol/L (3.5-5.1) 12/04/21 05:47 Chloride 107 mmol/L (98-107) 12/04/21 05:47 Carbon Dioxide 25.0 mmol/L (21-32) 12/04/21 05:47 BUN 18 mg/dL (7-18) 12/04/21 05:47 Creatinine 1.01 mg/dL (0.55-1.02) 12/04/21 05:47 Est GFR (MDRD) Af Amer > 60 (>60) 12/04/21 05:47 Est GFR (MDRD) Non-Af 55 (>60) L 12/04/21 05:47 Glucose 69 mg/dL (65-99) 12/04/21 05:47 Lactic Acid 1.9 mmol/L (0.4-2.0) 12/01/21 14:20 Calcium 8.5 mg/dL (8.5-10.1) 12/04/21 05:47 Corrected Calcium 9.3 mg/dL (8.5-10.1) 12/04/21 05:47 Total Bilirubin 1.10 mg/dL (0.2-1.0) H 12/04/21 05:47 AST 21 Units/L (15-37) 12/04/21 05:47 ALT 19 Units/L (12-78) 12/04/21 05:47 Alkaline Phosphatase 34 Units/L (46-116) L 12/04/21 05:47 C-Reactive Protein < 0.50 mg/L (0-3.0) 12/01/21 14:20 Total Protein 6.6 g/dL (6.4-8.2) 12/04/21 05:47 Albumin 3.0 g/dL (3.4-5.0) L 12/04/21 05:47 Globulin 3.6 g/dL (2.5-4.5) 12/04/21 05:47 Albumin/Globulin Ratio 0.8 Ratio (1.1-2.1) L 12/04/21 05:47 Specimen Type Clean catch urine 12/01/21 23:39 Urine Color Straw (YELLOW) 12/01/21 23:39 Urine Appearance Clear (CLEAR) 12/01/21 23:39 Urine pH 7.0 (5.0 - 8.0) 12/01/21 23:39 Ur Specific [place] 1.015 (1.000-1.030) 12/01/21 23:39 Urine Protein 1+ (NEGATIVE) 12/01/21 23:39 Urine Glucose (UA) Negative (NEGATIVE) 12/01/21 23:39 Urine Ketones Negative (NEGATIVE) 12/01/21 23:39 Urine Occult Blood 1+ (NEGATIVE) 12/01/21 23:39 Urine Nitrite Negative (NEGATIVE) 12/01/21 23:39 Urine Bilirubin Negative (NEGATIVE) 12/01/21 23:39 Urine Urobilinogen Normal (NORMAL) 12/01/21 23:39 Ur Leukocyte Esterase Negative (NEGATIVE) 12/01/21 23:39 Urine RBC 0-2 /HPF (0-3) 12/01/21 23:39 Urine WBC 0-2 /HPF (0-5) 12/01/21 23:39 Ur Squamous Epith Cells Rare /HPF (NEGATIVE) 12/01/21 23:39 Urine Bacteria Negative /HPF (NEGATIVE) 12/01/21 23:39 Urine Mucus Rare /HPF (NEGATIVE) 12/01/21 23:39 Ur Culture Indicated? No/not indicated 12/01/21 23:39 SARS-CoV-2 (PCR) Negative (NEGATIVE) 12/01/21 20:55 Influenza Type A (PCR) Negative (NEGATIVE) 12/01/21 20:55 Influenza Type B (PCR) Negative (NEGATIVE) 12/01/21 20:55 RSV (PCR) Negative (NEGATIVE) 12/01/21 20:55 SARS CoV-2 RNA Rapid PEDRO Negative (NEGATIVE) 12/01/21 12:37 - Plan (1) Left leg cellulitis Status: Acute Plan: WOUND CARE, PHYSICAL THERAPY, NORMAL SALINE AT 80 ML/HR, ZOSYN 3.375G IV TID, GENTAMICIN CREAM BID, RESUME HOME MEDS (2) Dehydration Status: Acute (3) Altered mental status Status: Acute Qualifiers: Altered mental status type: transient alteration of awareness Qualified Code(s): R40.4 - Transient alteration of awareness (4) Hypertension Status: Chronic Qualifiers: Hypertension type: primary hypertension Qualified Code(s): I10 - Essential (primary) hypertension (5) Anemia Status: Chronic Qualifiers: Anemia type: unspecified type Qualified Code(s): D64.9 - Anemia, uns pecified (6) Venous insufficiency Status: Chronic
[2021-12-04] MEDS: LOVENOX INJ 40 MG SYR SC SCH (09:58)
[2021-12-04] MEDS: LIPITOR TAB 40 MG PO SCH (20:29)
[2021-12-05] MEDS: ZOSYN VIAL 3.375 GRAMS 3.375 G in NS 100 ML IV 100 ML IV SCH ×3 (05:02→20:59)
[2021-12-05 06:14] LABS: BASOPHILS % (AUTO) 0.8 % (0.2-1.0); EOSINOPHILS # (AUTO) 0.4 x10^3/uL (0.0-0.2); EOSINOPHILS % (AUTO) 7.6 % (0.9-2.9); HEMATOCRIT 33.5 % (36.0-47.0); HEMOGLOBIN 11.3 g/dL (12.0-16.0); LYMPHOCYTES % (AUTO) 18.5 % (21.0-51.0); MEAN CORPUSCULAR HEMOGLOBIN 27.3 pg (27.0-34.0); MEAN CORPUSCULAR HGB CONC 33.7 g/dL (33.0-35.0); MEAN CORPUSCULAR VOLUME 81.1 fL (80.0-100.0); MEAN PLATELET VOLUME 8.7 fL (7.4-11.0); MONOCYTES # (AUTO) 0.5 x10^3/uL (0.3-0.8); NEUTROPHILS # (AUTO) 3.4 x10^3/uL (2.2-4.8); NEUTROPHILS % (AUTO) 64.1 % (42.0-75.0); RED BLOOD COUNT 4.13 X10^6/uL (3.5-5.4); RED CELL DISTRIBUTION WIDTH 17.7 % (11.6-16.5); WHITE BLOOD COUNT 5.3 X10^3/uL (3.6-10.0)
[2021-12-05 06:38] LABS: ALANINE AMINOTRANSFERASE 10 Units/L (12-78); ALBUMIN 2.5 g/dL (3.4-5.0); ALKALINE PHOSPHATASE 29 Units/L (46-116); ASPARTATE AMINO TRANSFERASE 24 Units/L (15-37); BLOOD UREA NITROGEN 23 mg/dL (7-18); CALCIUM 7.9 mg/dL (8.5-10.1); CARBON DIOXIDE 23.4 mmol/L (21-32); CHLORIDE 108 mmol/L (98-107); COR CA(FOR HYPOALB) 9.1 mg/dL (8.5-10.1); CREATININE 0.99 mg/dL (0.55-1.02); SODIUM 141 mmol/L (136-145); TOTAL PROTEIN 6.1 g/dL (6.4-8.2); eGFR NON BLACK RACES 56 (>60)
[2021-12-05] MEDS ORDERED: MILK OF MAGNESIA PO SCH (09:00)
[2021-12-05] MEDS: COZAAR PO SCH (09:01)
[2021-12-05] MEDS: PLAVIX PO SCH (09:01)
[2021-12-05] MEDS: LOPRESSOR TAB 50 MG PO SCH ×2 (09:02→20:58)
[2021-12-05] MEDS: ZyrTEC TAB 10 MG PO SCH (09:02)
[2021-12-05] MEDS: SYNTHROID 88 mcg TAB PO SCH (09:02)
[2021-12-05] MEDS: NORVASC TAB 5 MG PO SCH ×2 (09:02→20:58)
[2021-12-05] MEDS: LOVENOX INJ 40 MG SYR SC SCH (09:04)
[2021-12-05] MEDS: GENTAMICIN TOPICAL CRM TOP SCH ×2 (09:08→20:59)
--- NOTE | 2021-12-05 09:54 | PCM.PROG ---
Progress Note - Progress Note for Day of Date of Exam: 12/05/21 - Subjective Subjective: IS CURRENTLY BEING TREATED FOR LEFT LOWER EXTREMITY CELLULITIS, DEHYDRATION, ALTERED MENTAL STATUS, AND GENERALIZED WEAKNESS. TODAY, SHE IS LYING IN BED WITH EYES CLOSED ON MORNING ROUNDS. SHE AWAKENS TO VERBAL STIMULI. SHE DENIES PAIN OR OTHER COMPLAINTS. STAFF REPORTS THAT SHE DOES HAVE AN UNSTEADY GAIT WHEN AMBULATING AND REQUIRES TWO PERSON ASSISTANCE. ON EXAMINATION, HEART IS REGULAR IN RATE AND RHYTHM. BILATERAL LUNGS NOTED WITH DIMINISHED LUNG SOUNDS THROUGHOUT. ABDOMEN IS ROUND, SOFT, AND NON-TENDER WITH NORMAL BOWEL SOUNDS NOTED IN ALL QUADRANTS. LEFT LOWER FOOT NOTED WITH ERYTHEMA. PATIENT ALSO HAS A SMALL LACERATION TO THE POSTERIOR SCALP. NO BLEEDING OR DRAINAGE NOTED. THERE IS A SKIN TEAR TO THE RIGHT ELBOW. NO BLEEDING OR S/SX INFECTION NOTED. HER VITALS THIS MORNING ARE: 97.2-69-20-94%-161/72. LABS WERE OBTAINED. WBC 5.3, HGB 11.3, HCT 33.5, SODIUM 141, POTASSIUM 4.2, CHLORIDE 108, BUN 23, CREATININE 0.99, CALCIUM 7.9, ALT 10, ALK PHOS 29, TOTAL PROTEIN 6.1, ALBUMIN 2.5. BLOOD CULTURES ARE PENDING. SHE IS CURRENTLY RECEIVING NORMAL SALINE AT 80 ML/HR, ZOSYN 3.375G IV TID, GENTAMICIN CREAM BID, AND HER HOME MEDICATIONS OF NORVASC, LIPITOR, ZYRETC, PLAVIX, SYNTHROID, COZAAR, LOPRESSOR, AND ULTRAM WERE RESUMED. WE WILL CONTINUE WITH CURRENT PLAN OF CARE TODAY. PHYSICAL THERAPY THINKS THAT PATIENT WOULD BENEFIT FROM AN EXTENDED COURSE OF PHYSICAL THERAPY. PATIENTS FAMILY [facility] PLAC[facility]. WE HAVE DISCUSSED WITH CASE MANAGEMENT AND THEY ARE ARRANGING PLACEMENT. OTHERWISE, WE PLAN TO FOLLOW UP WITH AM LABS AND CONTINUE TO MONITOR. TIME SPENT ON CLINICAL ASSESSMENT, REVIEWING LABS AND IMAGING, DECISION MAKING, AND DOCUMENTATION WAS GREATER THAN 45 MINUTES. - Past Medical Family Social History Past Med/Fam/Surg Hx: No changes since H&P Allergies: Allergies No Known Drug Allergies Allergy (Verified 12/01/21 16:00) - Review of Systems ROS: No change since H&P - Vital Signs and I&O's Vital Signs: Temperature 97.2 F Pulse Rate [Left Brachial] 69 Respiratory Rate 20 Blood Pressure [Right Arm] 161/72 Blood Pressure [Left Arm] 185/72 Blood Pressure 144/78 O2 Sat by Pulse Oximetry 94 Intake and Output: Intake & Output 12/02/21 12/03/21 12/04/21 12/05/21 11:59 11:59 11:59 11:59 Intake Total 1550 / 1550 3721 / 3721 1651 / 1651 1950 Balance 1550 / 1550 3721 / 3721 165 / 1650 - Physical Exam Oriented: Person Eyes: Normal Ear: Normal Nose: Normal Throat: Normal Respiratory: Generalized, Diminished Cardiovascular: Edema (LEFT LOWER EXTREMITY ) : Normal Auscultation: Bowel Sounds: Normal Tenderness: Normal Skin: Decreased Turgur, Red, Tender, Wound (LEFT FOOT, GREAT TOE ) Musculoskeletal: Normal Psychiatric: Normal Mood Description: Calm Affect: Normal Speech Pattern: Clear, Inappropriate - Laboratory and Diagnostics Result Diagrams: 12/05/21 05:20 12/05/21 05:20 Labs: 12/01/21 14:20 Blood Blood Culture - Preliminary Laboratory WBC 5.3 X10^3/uL (3.6-10.0) 12/05/21 05:20 RBC 4.13 X10^6/uL (3.5-5.4) 12/05/21 05:20 Hgb 11.3 g/dL (12.0-16.0) L 12/05/21 05:20 Hct 33.5 % (36.0-47.0) L 12/05/21 05:20 MCV 81.1 fL (80.0-100.0) 12/05/21 05:20 MCH 27.3 pg (27.0-34.0) 12/05/21 05:20 MCHC 33.7 g/dL (33.0-35.0) 12/05/21 05:20 RDW 17.7 % (11.6-16.5) H 12/05/21 05:20 Plt Count 253 X10^3/uL (150.0-450.0) 12/05/21 05:20 MPV 8.7 fL (7.4-11.0) 12/05/21 05:20 Neut % (Auto) 64.1 % (42.0-75.0) 12/05/21 05:20 Lymph % (Auto) 18.5 % (21.0-51.0) L 12/05/21 05:20 [place] % (Auto) 9.0 % (0.0-13.0) 12/05/21 05:20 Eos % (Auto) 7.6 % (0.9-2.9) H 12/05/21 05:20 Baso % (Auto) 0.8 % (0.2-1.0) 12/05/21 05:20 Neut # (Auto) 3.4 x10^3/uL (2.2-4.8) 12/05/21 05:20 Lymph # (Auto) 1.0 X10^3/uL (1.3-2.9) L 12/05/21 05:20 [place] # (Auto) 0.5 x10^3/uL (0.3-0.8) 12/05/21 05:20 Eos # (Auto) 0.4 x10^3/uL (0.0-0.2) H 12/05/21 05:20 Baso # (Auto) 0.0 X10^3/uL (0.0-0.1) 12/05/21 05:20 Absolute Nucleated RBC 0.1 /100WBC 12/05/21 05:20 ESR 41 MM/HOUR (0-20) H 12/01/21 14:20 PT 12.9 SECONDS (11.8-14.3) 12/01/21 14:20 INR Target Range - 12/01/21 14:20 INR 1.02 (0.8-1.3) 12/01/21 14:20 Sodium 141 mmol/L (136-145) 12/05/21 05:20 Corrected Sodium TNP 12/05/21 05:20 Potassium 4.2 mmol/L (3.5-5.1) 12/05/21 05:20 Chloride 108 mmol/L (98-107) H 12/05/21 05:20 Carbon Dioxide 23.4 mmol/L (21-32) 12/05/21 05:20 BUN 23 mg/dL (7-18) H 12/05/21 05:20 Creatinine 0.99 mg/dL (0.55-1.02) 12/05/21 05:20 Est GFR (MDRD) Af Amer > 60 (>60) 12/05/21 05:20 Est GFR (MDRD) Non-Af 56 (>60) L 12/05/21 05:20 Glucose 84 mg/dL (65-99) 12/05/21 05:20 Lactic Acid 1.9 mmol/L (0.4-2.0) 12/01/21 14:20 Calcium 7.9 mg/dL (8.5-10.1) L 12/05/21 05:20 Corrected Calcium 9.1 mg/dL (8.5-10.1) 12/05/21 05:20 Total Bilirubin 0.70 mg/dL (0.2-1.0) 12/05/21 05:20 AST 24 Units/L (15-37) 12/05/21 05:20 ALT 10 Units/L (12-78) L 12/05/21 05:20 Alkaline Phosphatase 29 Units/L (46-116) L 12/05/21 05:20 C-Reactive Protein < 0.50 mg/L (0-3.0) 12/01/21 14:20 Total Protein 6.1 g/dL (6.4-8.2) L 12/05/21 05:20 Albumin 2.5 g/dL (3.4-5.0) L 12/05/21 05:20 Globulin 3.6 g/dL (2.5-4.5) 12/05/21 05:20 Albumin/Globulin Ratio 0.7 Ratio (1.1-2.1) L 12/05/21 05:20 Specimen Type Clean catch urine 12/01/21 23:39 Urine Color Straw (YELLOW) 12/01/21 23:39 Urine Appearance Clear (CLEAR) 12/01/21 23:39 Urine pH 7.0 (5.0 - 8.0) 12/01/21 23:39 Ur Specific [place] 1.015 (1.000-1.030) 12/01/21 23:39 Urine Protein 1+ (NEGATIVE) 12/01/21 23:39 Urine Glucose (UA) Negative (NEGATIVE) 12/01/21 23:39 Urine Ketones Negative (NEGATIVE) 12/01/21 23:39 Urine Occult Blood 1+ (NEGATIVE) 12/01/21 23:39 Urine Nitrite Negative (NEGATIVE) 12/01/21 23:39 Urine Bilirubin Negative (NEGATIVE) 12/01/21 23:39 Urine Urobilinogen Normal (NORMAL) 12/01/21 23:39 Ur Leukocyte Esterase Negative (NEGATIVE) 12/01/21 23:39 Urine RBC 0-2 /HPF (0-3) 12/01/21 23:39 Urine WBC 0-2 /HPF (0-5) 12/01/21 23:39 Ur Squamous Epith Cells Rare /HPF (NEGATIVE) 12/01/21 23:39 Urine Bacteria Negative /HPF (NEGATIVE) 12/01/21 23:39 Urine Mucus Rare /HPF (NEGATIVE) 12/01/21 23:39 Ur Culture Indicated? No/not indicated 12/01/21 23:39 SARS-CoV-2 (PCR) Negative (NEGATIVE) 12/01/21 20:55 Influenza Type A (PCR) Negative (NEGATIVE) 12/01/21 20:55 Influenza Type B (PCR) Negative (NEGATIVE) 12/01/21 20:55 RSV (PCR) Negative (NEGATIVE) 12/01/21 20:55 SARS CoV-2 RNA Rapid PEDRO Negative (NEGATIVE) 12/01/21 12:37 - Plan (1) Left leg cellulitis Status: Acute Plan: WOUND CARE, PHYSICAL THERAPY, NORMAL SALINE AT 80 ML/HR, ZOSYN 3.375G IV TID, GENTAMICIN CREAM BID, RESUME HOME MEDS (2) Dehydration Status: Acute (3) Altered mental status Status: Acute Qualifiers: Altered mental status type: transient alteration of awareness Qualified Code(s): R40.4 - Transient alteration of awareness (4) Hypertension Status: Chronic Qualifiers: Hypertension type: primary hypertension Qualified Code(s): I10 - Essential (primary) hypertension (5) Anemia Status: Chronic Qualifiers: Anemia type: unspecified type Qualified Code(s): D64.9 - Anemia, unspecified (6) Venous insufficiency Status: Chronic
[2021-12-05] MEDS: NS 1,000 ML IV 1,000 ML IV SCH ×2 (10:44→23:44)
[2021-12-05] MEDS ORDERED: MILK OF MAGNESIA PO PRN (18:02)
[2021-12-05] MEDS ORDERED: COLACE CAP 100 MG PO ONE (19:11)
[2021-12-05] MEDS ORDERED: NORVASC TAB 5 MG ONE (19:11)
[2021-12-05] MEDS: COLACE CAP 100 MG PO SCH (20:58)
[2021-12-05] MEDS: LIPITOR TAB 40 MG PO SCH (20:58)
[2021-12-06] MEDS: ZOSYN VIAL 3.375 GRAMS 3.375 G in NS 100 ML IV 100 ML IV SCH ×3 (05:12→21:53)
[2021-12-06 06:11] LABS: BASOPHILS % (AUTO) 0.8 % (0.2-1.0); EOSINOPHILS # (AUTO) 0.3 x10^3/uL (0.0-0.2); EOSINOPHILS % (AUTO) 6.2 % (0.9-2.9); HEMOGLOBIN 11.2 g/dL (12.0-16.0); LYMPHOCYTES # (AUTO) 0.8 X10^3/uL (1.3-2.9); LYMPHOCYTES % (AUTO) 14.6 % (21.0-51.0); MEAN CORPUSCULAR HEMOGLOBIN 27.5 pg (27.0-34.0); MEAN CORPUSCULAR HGB CONC 33.9 g/dL (33.0-35.0); MEAN CORPUSCULAR VOLUME 81.2 fL (80.0-100.0); MEAN PLATELET VOLUME 8.4 fL (7.4-11.0); MONOCYTES # (AUTO) 0.5 x10^3/uL (0.3-0.8); MONOCYTES % (AUTO) 9.6 % (0.0-13.0); NEUTROPHILS # (AUTO) 3.6 x10^3/uL (2.2-4.8); NEUTROPHILS % (AUTO) 68.8 % (42.0-75.0); RED BLOOD COUNT 4.07 X10^6/uL (3.5-5.4); RED CELL DISTRIBUTION WIDTH 17.6 % (11.6-16.5); WHITE BLOOD COUNT 5.3 X10^3/uL (3.6-10.0)
[2021-12-06 06:13] LABS: ALANINE AMINOTRANSFERASE 13 Units/L (12-78); ALBUMIN 2.5 g/dL (3.4-5.0); ALKALINE PHOSPHATASE 29 Units/L (46-116); ASPARTATE AMINO TRANSFERASE 18 Units/L (15-37); BLOOD UREA NITROGEN 23 mg/dL (7-18); CALCIUM 8.3 mg/dL (8.5-10.1); CARBON DIOXIDE 25.4 mmol/L (21-32); CHLORIDE 109 mmol/L (98-107); COR CA(FOR HYPOALB) 9.5 mg/dL (8.5-10.1); CREATININE 0.85 mg/dL (0.55-1.02); SODIUM 143 mmol/L (136-145); eGFR NON BLACK RACES > 60 (>60)
[2021-12-06] MEDS: LOVENOX INJ 40 MG SYR SC SCH (09:15)
[2021-12-06] MEDS: COZAAR PO SCH (09:16)
[2021-12-06] MEDS: ZyrTEC TAB 10 MG PO SCH (09:16)
[2021-12-06] MEDS: LOPRESSOR TAB 50 MG PO SCH ×2 (09:17→21:53)
[2021-12-06] MEDS: NORVASC TAB 5 MG PO SCH ×2 (09:17→21:53)
[2021-12-06] MEDS: PLAVIX PO SCH (09:17)
[2021-12-06] MEDS: SYNTHROID 88 mcg TAB PO SCH (09:17)
[2021-12-06] MEDS: GENTAMICIN TOPICAL CRM TOP SCH ×2 (09:20→21:54)
--- NOTE | 2021-12-06 10:19 | PCM.PROG ---
Progress Note - Progress Note for Day of Date of Exam: 12/06/21 - Subjective Subjective: IS CURRENTLY BEING TREATED FOR LEFT LOWER EXTREMITY CELLULITIS, DEHYDRATION, ALTERED MENTAL STATUS, AND GENERALIZED WEAKNESS. TODAY, SHE IS LYING IN BED WITH EYES CLOSED ON MORNING ROUNDS. SHE AWAKENS TO VERBAL STIMULI. SHE DENIES PAIN OR OTHER COMPLAINTS. STAFF REPORTS THAT SHE DOES HAVE AN UNSTEADY GAIT WHEN AMBULATING AND REQUIRES TWO PERSON ASSISTANCE. ON EXAMINATION, HEART IS REGULAR IN RATE AND RHYTHM. BILATERAL LUNGS NOTED WITH DIMINISHED LUNG SOUNDS THROUGHOUT. ABDOMEN IS ROUND, SOFT, AND NON-TENDER WITH NORMAL BOWEL SOUNDS NOTED IN ALL QUADRANTS. LEFT LOWER FOOT NOTED WITH ERYTHEMA. PATIENT ALSO HAS A SMALL LACERATION TO THE POSTERIOR SCALP. NO BLEEDING OR DRAINAGE NOTED. THERE IS A SKIN TEAR TO THE RIGHT ELBOW. NO BLEEDING OR S/SX INFECTION NOTED. HER VITALS THIS MORNING ARE: 98.5-64-20-96%-184/74. LABS WERE OBTAINED. WBC 5.3, HGB 11.2, HCT 33.0, SODIUM 143, CHLORIDE 109, BUN 23, CALCIUM 8.3, ALK PHOS 29, TOTAL PROTEIN 6.0, ALBUMIN 2.5. BLOOD CULTURES ARE PENDING. SHE IS CURRENTLY RECEIVING NORMAL SALINE AT 80 ML/HR, ZOSYN 3.375G IV TID, GENTAMICIN CREAM BID, AND HER HOME MEDICATIONS OF NORVASC, LIPITOR, ZYRETC, PLAVIX, SYNTHROID, COZAAR, LOPRESSOR, AND ULTRAM WERE RESUMED. WE WILL CONTINUE WITH CURRENT PLAN OF CARE TODAY. PHYSICAL THERAPY THINKS THAT PATIENT WOULD BENEFIT FROM AN EXTENDED COURSE OF PHYSICAL THERAPY. PATIENTS FAMILY REQUEST PLACEMENT [facility]. WE HAVE DISCUSSED WITH CASE MANAGEMENT AND A PRECERT IS PENDING. OTHERWISE, WE PLAN TO FOLLOW UP WITH AM LABS AND CONTINUE TO MONITOR. TIME SPENT ON CLINICAL ASSESSMENT, REVIEWING LABS AND IMAGING, DECISION MAKING, AND DOCUMENTATION WAS GREATER THAN 45 MINUTES. - Past Medical Family Social History Past Med/Fam/Surg Hx: No changes since H&P Allergies: Allergies No Known Drug Allergies Allergy (Verified 12/01/21 16:00) - Review of Systems ROS: No change since H&P - Vital Signs and I&O's Vital Signs: Temperature 98.5 F Pulse Rate [Left Brachial] 64 Respiratory Rate 20 Blood Pressure [Right Arm] 184/74 Blood Pressure [Left Arm] 185/72 Blood Pressure 144/78 O2 Sat by Pulse Oximetry 96 Intake and Output: Intake & Output 12/03/21 12/04/21 12/05/21 12/06/21 11:59 11:59 11:59 11:59 Intake Total 3721 / 3721 1651 / 1 1950 2664 / 2664 Balance 3721 / 3721 1650 / 1650 2664 / 2664 - Physical Exam Oriented: Person Eyes: Normal Ear: Normal Nose: Normal Throat: Normal Respiratory: Generalized, Diminished Cardiovascular: Edema (LEFT LOWER EXTREMITY ) : Normal Auscultation: Bowel Sounds: Normal Palpation: Normal Tenderness: Normal Skin: Decreased Turgur, Red, Tender, Wound (LEFT FOOT, GREAT TOE ) Musculoskeletal: Normal Psychiatric: Normal Mood Description: Calm Affect: Normal Speech Pattern: Clear, Inappropriate - Laboratory and Diagnostics Result Diagrams: 12/06/21 05:20 12/06/21 05:20 Labs: 12/01/21 14:20 Blood Blood Culture - Preliminary Laboratory WBC 5.3 X10^3/uL (3.6-10.0) 12/06/21 05:20 RBC 4.07 X10^6/uL (3.5-5.4) 12/06/21 05:20 Hgb 11.2 g/dL (12.0-16.0) L 12/06/21 05:20 Hct 33.0 % (36.0-47.0) L 12/06/21 05:20 MCV 81.2 fL (80.0-100.0) 12/06/21 05:20 MCH 27.5 pg (27.0-34.0) 12/06/21 05:20 MCHC 33.9 g/dL (33.0-35.0) 12/06/21 05:20 RDW 17.6 % (11.6-16.5) H 12/06/21 05:20 Plt Count 239 X10^3/uL (150.0-450.0) 12/06/21 05:20 MPV 8.4 fL (7.4-11.0) 12/06/21 05:20 Neut % (Auto) 68.8 % (42.0-75.0) 12/06/21 05:20 Lymph % (Auto) 14.6 % (21.0-51.0) L 12/06/21 05:20 [place] % (Auto) 9.6 % (0.0-13.0) 12/06/21 05:20 Eos % (Auto) 6.2 % (0.9-2.9) H 12/06/21 05:20 Baso % (Auto) 0.8 % (0.2-1.0) 12/06/21 05:20 Neut # (Auto) 3.6 x10^3/uL (2.2-4.8) 12/06/21 05:20 Lymph # (Auto) 0.8 X10^3/uL (1.3-2.9) L 12/06/21 05:20 [place] # (Auto) 0.5 x10^3/uL (0.3-0.8) 12/06/21 05:20 Eos # (Auto) 0.3 x10^3/uL (0.0-0.2) H 12/06/21 05:20 Baso # (Auto) 0.0 X10^3/uL (0.0-0.1) 12/06/21 05:20 Absolute Nucleated RBC 0.1 /100WBC 12/06/21 05:20 ESR 41 MM/HOUR (0-20) H 12/01/21 14:20 PT 12.9 SECONDS (11.8-14.3) 12/01/21 14:20 INR Target Range - 12/01/21 14:20 INR 1.02 (0.8-1.3) 12/01/21 14:20 Sodium 143 mmol/L (136-145) 12/06/21 05:20 Corrected Sodium TNP 12/06/21 05:20 Potassium 3.9 mmol/L (3.5-5.1) 12/06/21 05:20 Chloride 109 mmol/L (98-107) H 12/06/21 05:20 Carbon Dioxide 25.4 mmol/L (21-32) 12/06/21 05:20 BUN 23 mg/dL (7-18) H 12/06/21 05:20 Creatinine 0.85 mg/dL (0.55-1.02) 12/06/21 05:20 Est GFR (MDRD) Af Amer > 60 (>60) 12/06/21 05:20 Est GFR (MDRD) Non-Af > 60 (>60) 12/06/21 05:20 Glucose 92 mg/dL (65-99) 12/06/21 05:20 Lactic Acid 1.9 mmol/L (0.4-2.0) 12/01/21 14:20 Calcium 8.3 mg/dL (8.5-10.1) L 12/06/21 05:20 Corrected Calcium 9.5 mg/dL (8.5-10.1) 12/06/21 05:20 Total Bilirubin 0.50 mg/dL (0.2-1.0) 12/06/21 05:20 AST 18 Units/L (15-37) 12/06/21 05:20 ALT 13 Units/L (12-78) 12/06/21 05:20 Alkaline Phosphatase 29 Units/L (46-116) L 12/06/21 05:20 C-Reactive Protein < 0.50 mg/L (0-3.0) 12/01/21 14:20 Total Protein 6.0 g/dL (6.4-8.2) L 12/06/21 05:20 Albumin 2.5 g/dL (3.4-5.0) L 12/06/21 05:20 Globulin 3.5 g/dL (2.5-4.5) 12/06/21 05:20 Albumin/Globulin Ratio 0.7 Ratio (1.1-2.1) L 12/06/21 05:20 Specimen Type Clean catch urine 12/01/21 23:39 Urine Color Straw (YELLOW) 12/01/21 23:39 Urine Appearance Clear (CLEAR) 12/01/21 23:39 Urine pH 7.0 (5.0 - 8.0) 12/01/21 23:39 Ur Specific [place] 1.015 (1.000-1.030) 12/01/21 23:39 Urine Protein 1+ (NEGATIVE) 12/01/21 23:39 Urine Glucose (UA) Negative (NEGATIVE) 12/01/21 23:39 Urine Ketones Negative (NEGATIVE) 12/01/21 23:39 Urine Occult Blood 1+ (NEGATIVE) 12/01/21 23:39 Urine Nitrite Negative (NEGATIVE) 12/01/21 23:39 Urine Bilirubin Negative (NEGATIVE) 12/01/21 23:39 Urine Urobilinogen Normal (NORMAL) 12/01/21 23:39 Ur Leukocyte Esterase Negative (NEGATIVE) 12/01/21 23:39 Urine RBC 0-2 /HPF (0-3) 12/01/21 23:39 Urine WBC 0-2 /HPF (0-5) 12/01/21 23:39 Ur Squamous Epith Cells Rare /HPF (NEGATIVE) 12/01/21 23:39 Urine Bacteria Negative /HPF (NEGATIVE) 12/01/21 23:39 Urine Mucus Rare /HPF (NEGATIVE) 12/01/21 23:39 Ur Culture Indicated? No/not indicated 12/01/21 23:39 SARS-CoV-2 (PCR) Negative (NEGATIVE) 12/01/21 20:55 Influenza Type A (PCR) Negative (NEGATIVE) 12/01/21 20:55 Influenza Type B (PCR) Negative (NEGATIVE) 12/01/21 20:55 RSV (PCR) Negative (NEGATIVE) 12/01/21 20:55 SARS CoV-2 RNA Rapid PEDRO Negative (NEGATIVE) 12/01/21 12:37 - Plan (1) Left leg cellulitis Status: Acute Plan: WOUND CARE, PHYSICAL THERAPY, NORMAL SALINE AT 80 ML/HR, ZOSYN 3.375G IV TID, GENTAMICIN CREAM BID, RESUME HOME MEDS (2) Dehydration Status: Acute (3) Altered mental status Status: Acute Qualifiers: Altered mental status type: transient alteration of awareness Qualified Code(s): R40.4 - Transient alteration of awareness (4) Hypertension Status: Chronic Qualifiers: Hypertension type: primary hypertension Qualified Code(s): I10 - Essential (primary) hypertension (5) Anemia Status: Chronic Qualifiers: Anemia type: unspecified type Qualified Code(s): D64.9 - Anemia, unspecified (6) Venous insufficiency Status: Chronic
[2021-12-06] MEDS: NS 1,000 ML IV 1,000 ML IV SCH ×2 (12:13→18:42)
[2021-12-06] MEDS ORDERED: NS 250 ML IV 250 ML IV ONE (14:00)
[2021-12-06] MEDS: COLACE CAP 100 MG PO SCH (21:53)
[2021-12-06] MEDS: LIPITOR TAB 40 MG PO SCH (21:53)
[2021-12-07 05:00] LABS: BASOPHILS % (AUTO) 0.9 % (0.2-1.0); EOSINOPHILS # (AUTO) 0.4 x10^3/uL (0.0-0.2); EOSINOPHILS % (AUTO) 8.9 % (0.9-2.9); HEMATOCRIT 31.5 % (36.0-47.0); HEMOGLOBIN 10.6 g/dL (12.0-16.0); LYMPHOCYTES % (AUTO) 21.4 % (21.0-51.0); MEAN CORPUSCULAR HEMOGLOBIN 27.3 pg (27.0-34.0); MEAN CORPUSCULAR HGB CONC 33.7 g/dL (33.0-35.0); MEAN CORPUSCULAR VOLUME 81.1 fL (80.0-100.0); MEAN PLATELET VOLUME 8.7 fL (7.4-11.0); MONOCYTES # (AUTO) 0.5 x10^3/uL (0.3-0.8); MONOCYTES % (AUTO) 11.8 % (0.0-13.0); NEUTROPHILS # (AUTO) 2.6 x10^3/uL (2.2-4.8); RED BLOOD COUNT 3.88 X10^6/uL (3.5-5.4); RED CELL DISTRIBUTION WIDTH 17.9 % (11.6-16.5); WHITE BLOOD COUNT 4.5 X10^3/uL (3.6-10.0)
[2021-12-07 05:18] LABS: ALANINE AMINOTRANSFERASE 15 Units/L (12-78); ALBUMIN 2.5 g/dL (3.4-5.0); ALKALINE PHOSPHATASE 34 Units/L (46-116); ASPARTATE AMINO TRANSFERASE 19 Units/L (15-37); BLOOD UREA NITROGEN 26 mg/dL (7-18); CALCIUM 8.2 mg/dL (8.5-10.1); CARBON DIOXIDE 26.7 mmol/L (21-32); CHLORIDE 110 mmol/L (98-107); COR CA(FOR HYPOALB) 9.4 mg/dL (8.5-10.1); SODIUM 146 mmol/L (136-145); eGFR NON BLACK RACES > 60 (>60)
[2021-12-07] MEDS: SYNTHROID 88 mcg TAB PO SCH (06:05)
[2021-12-07] MEDS: ZOSYN VIAL 3.375 GRAMS 3.375 G in NS 100 ML IV 100 ML IV SCH (06:53)
[2021-12-07] MEDS: ZyrTEC TAB 10 MG PO SCH (08:35)
[2021-12-07] MEDS: COZAAR PO SCH (08:35)
[2021-12-07] MEDS: LOPRESSOR TAB 50 MG PO SCH (08:35)
[2021-12-07] MEDS: NORVASC TAB 5 MG PO SCH (08:35)
[2021-12-07] MEDS: GENTAMICIN TOPICAL CRM TOP SCH (08:38)
[2021-12-07] MEDS: PLAVIX PO SCH (08:44)
[2021-12-07] MEDS: NS 1,000 ML IV 1,000 ML IV SCH (08:44)
[2021-12-07] MEDS: LOVENOX INJ 40 MG SYR SC SCH (08:44)
--- NOTE | 2021-12-07 09:44 | PCM.PROG ---
Progress Note - Progress Note for Day of Date of Exam: 12/07/21 - Subjective Subjective: IS CURRENTLY BEING TREATED FOR LEFT LOWER EXTREMITY CELLULITIS, DEHYDRATION, ALTERED MENTAL STATUS, AND GENERALIZED WEAKNESS. TODAY, SHE IS LYING IN BED WITH EYES CLOSED ON MORNING ROUNDS. SHE AWAKENS TO VERBAL STIMULI. SHE DENIES PAIN OR OTHER COMPLAINTS. STAFF REPORTS THAT SHE CONTINUES TO REQUIRE MODERATE ASSISTANCE WITH AMBULATION. ON EXAMINATION, HEART IS REGULAR IN RATE AND RHYTHM. BILATERAL LUNGS NOTED WITH DIMINISHED LUNG SOUNDS THROUGHOUT. ABDOMEN IS ROUND, SOFT, AND NON-TENDER WITH NORMAL BOWEL SOUNDS NOTED IN ALL QUADRANTS. LEFT LOWER FOOT NOTED WITH ERYTHEMA. PATIENT ALSO HAS A SMALL LACERATION TO THE POSTERIOR SCALP. NO BLEEDING OR DRAINAGE NOTED. THERE IS A SKIN TEAR TO THE RIGHT ELBOW. NO BLEEDING OR S/SX INFECTION NOTED. HER VITALS THIS MORNING ARE: 98.1-67-18-93%-156/76. LABS WERE OBTAINED. WBC 4.5, HGB 10.6, HCT 31.5, SODIUM 146, CHLORIDE 110, BUN 26, GLUCOSE 100, CALCIUM 8.2, ALK PHOS 34, TOTAL PROTEIN 6.0, ALBUMIN 2.5. BLOOD CULTURES ARE PENDING. SHE IS CURRENTLY RECEIVING NORMAL SALINE AT 80 ML/HR, ZOSYN 3.375G IV TID, GENTAMICIN CREAM BID, AND HER HOME MEDICATIONS OF NORVASC, LIPITOR, ZYRETC, PLAVIX, SYNTHROID, COZAAR, LOPRESSOR, AND ULTRAM WERE RESUMED. WE WILL CONTINUE WITH CURRENT PLAN OF CARE TODAY. PHYSICAL THERAPY THINKS THAT PATIENT WOULD BENEFIT FROM AN EXTENDED COURSE OF PHYSICAL THERAPY. PATIENTS FAMILY REQUEST PLACEMENT AT [facility] FOR [facility]AP[facility]. WE HAVE DISCUSSED WITH CASE MANAGEMENT AND A PRECERT IS PENDING. OTHERWISE, WE PLAN TO FOLLOW UP WITH AM LABS AND CONTINUE TO MONITOR. TIME SPENT ON CLINICAL ASSESSMENT, REVIEWING LABS AND IMAGING, DECISION MAKING, AND DOCUMENTATION WAS GREATER THAN 45 MINUTES. - Past Medical Family Social History Past Med/Fam/Surg Hx: No changes since H&P Allergies: Allergies No Known Drug Allergies Allergy (Verified 12/01/21 16:00) - Review of Systems ROS: No change since H&P - Vital Signs and I&O's Vital Signs: Temperature 98.1 F Pulse Rate [Left Brachial] 67 Respiratory Rate 18 Blood Pressure [Right Arm] 156/76 Blood Pressure [Left Arm] 185/72 Blood Pressure 144/78 O2 Sat by Pulse Oximetry 93 Intake and Output: Intake & Output 12/04/21 12/05/21 12/06/21 12/07/21 11:59 11:59 11:59 11:59 Intake Total 1650 2664 / 2664 3968 / 3968 Balance 1650 2664 / 2664 3968 / 3968 - Physical Exam Oriented: Person Eyes: Normal Ear: Normal Nose: Normal Throat: Normal Respiratory: Generalized, Diminished Cardiovascular: Edema (LEFT LOWER EXTREMITY ) : Normal Auscultation: Bowel Sounds: Normal Tenderness: Normal Skin: Decreased Turgur, Red, Tender, Wound (LEFT FOOT, GREAT TOE ) Musculoskeletal: Normal Psychiatric: Normal Mood Description: Calm Affect: Normal Speech Pattern: Clear, Appropriate - Laboratory and Diagnostics Result Diagrams: 12/07/21 03:41 12/07/21 03:41 Labs: 12/01/21 14:20 Blood Blood Culture - Preliminary Laboratory WBC 4.5 X10^3/uL (3.6-10.0) 12/07/21 03:41 RBC 3.88 X10^6/uL (3.5-5.4) 12/07/21 03:41 Hgb 10.6 g/dL (12.0-16.0) L 12/07/21 03:41 Hct 31.5 % (36.0-47.0) L 12/07/21 03:41 MCV 81.1 fL (80.0-100.0) 12/07/21 03:41 MCH 27.3 pg (27.0-34.0) 12/07/21 03:41 MCHC 33.7 g/dL (33.0-35.0) 12/07/21 03:41 RDW 17.9 % (11.6-16.5) H 12/07/21 03:41 Plt Count 274 X10^3/uL (150.0-450.0) 12/07/21 03:41 MPV 8.7 fL (7.4-11.0) 12/07/21 03:41 Neut % (Auto) 57.0 % (42.0-75.0) 12/07/21 03:41 Lymph % (Auto) 21.4 % (21.0-51.0) 12/07/21 03:41 [place] % (Auto) 11.8 % (0.0-13.0) 12/07/21 03:41 Eos % (Auto) 8.9 % (0.9-2.9) H 12/07/21 03:41 Baso % (Auto) 0.9 % (0.2-1.0) 12/07/21 03:41 Neut # (Auto) 2.6 x10^3/uL (2.2-4.8) 12/07/21 03:41 Lymph # (Auto) 1.0 X10^3/uL (1.3-2.9) L 12/07/21 03:41 [place] # (Auto) 0.5 x10^3/uL (0.3-0.8) 12/07/21 03:41 Eos # (Auto) 0.4 x10^3/uL (0.0-0.2) H 12/07/21 03:41 Baso # (Auto) 0.0 X10^3/uL (0.0-0.1) 12/07/21 03:41 Absolute Nucleated RBC 0.0 /100WBC 12/07/21 03:41 ESR 41 MM/HOUR (0-20) H 12/01/21 14:20 PT 12.9 SECONDS (11.8-14.3) 12/01/21 14:20 INR Target Range - 12/01/21 14:20 INR 1.02 (0.8-1.3) 12/01/21 14:20 Sodium 146 mmol/L (136-145) H 12/07/21 03:41 Corrected Sodium TNP 12/07/21 03:41 Potassium 3.7 mmol/L (3.5-5.1) 12/07/21 03:41 Chloride 110 mmol/L (98-107) H 12/07/21 03:41 Carbon Dioxide 26.7 mmol/L (21-32) 12/07/21 03:41 BUN 26 mg/dL (7-18) H 12/07/21 03:41 Creatinine 0.80 mg/dL (0.55-1.02) 12/07/21 03:41 Est GFR (MDRD) Af Amer > 60 (>60) 12/07/21 03:41 Est GFR (MDRD) Non-Af > 60 (>60) 12/07/21 03:41 Glucose 100 mg/dL (65-99) H 12/07/21 03:41 Lactic Acid 1.9 mmol/L (0.4-2.0) 12/01/21 14:20 Calcium 8.2 mg/dL (8.5-10.1) L 12/07/21 03:41 Corrected Calcium 9.4 mg/dL (8.5-10.1) 12/07/21 03:41 Total Bilirubin 0.40 mg/dL (0.2-1.0) 12/07/21 03:41 AST 19 Units/L (15-37) 12/07/21 03:41 ALT 15 Units/L (12-78) 12/07/21 03:41 Alkaline Phosphatase 34 Units/L (46-116) L 12/07/21 03:41 C-Reactive Protein < 0.50 mg/L (0-3.0) 12/01/21 14:20 Total Protein 6.0 g/dL (6.4-8.2) L 12/07/21 03:41 Albumin 2.5 g/dL (3.4-5.0) L 12/07/21 03:41 Globulin 3.5 g/dL (2.5-4.5) 12/07/21 03:41 Albumin/Globulin Ratio 0.7 Ratio (1.1-2.1) L 12/07/21 03:41 Specimen Type Clean catch urine 12/01/21 23:39 Urine Color Straw (YELLOW) 12/01/21 23:39 Urine Appearance Clear (CLEAR) 12/01/21 23:39 Urine pH 7.0 (5.0 - 8.0) 12/01/21 23:39 Ur Specific [place] 1.015 (1.000-1.030) 12/01/21 23:39 Urine Protein 1+ (NEGATIVE) 12/01/21 23:39 Urine Glucose (UA) Negative (NEGATIVE) 12/01/21 23:39 Urine Ketones Negative (NEGATIVE) 12/01/21 23:39 Urine Occult Blood 1+ (NEGATIVE) 12/01/21 23:39 Urine Nitrite Negative (NEGATIVE) 12/01/21 23:39 Urine Bilirubin Negative (NEGATIVE) 12/01/21 23:39 Urine Urobilinogen Normal (NORMAL) 12/01/21 23:39 Ur Leukocyte Esterase Negative (NEGATIVE) 12/01/21 23:39 Urine RBC 0-2 /HPF (0-3) 12/01/21 23:39 Urine WBC 0-2 /HPF (0-5) 12/01/21 23:39 Ur Squamous Epith Cells Rare /HPF (NEGATIVE) 12/01/21 23:39 Urine Bacteria Negative /HPF (NEGATIVE) 12/01/21 23:39 Urine Mucus Rare /HPF (NEGATIVE) 12/01/21 23:39 Ur Culture Indicated? No/not indicated 12/01/21 23:39 SARS-CoV-2 (PCR) Negative (NEGATIVE) 12/01/21 20:55 Influenza Type A (PCR) Negative (NEGATIVE) 12/01/21 20:55 Influenza Type B (PCR) Negative (NEGATIVE) 12/01/21 20:55 RSV (PCR) Negative (NEGATIVE) 12/01/21 20:55 SARS CoV-2 RNA Rapid PEDRO Negative (NEGATIVE) 12/01/21 12:37 - Plan (1) Left leg cellulitis Status: Acute Plan: WOUND CARE, PHYSICAL THERAPY, NORMAL SALINE AT 80 ML/HR, ZOSYN 3.375G IV TID, GENTAMICIN CREAM BID, RESUME HOME MEDS (2) Dehydration Status: Acute (3) Altered mental status Status: Acute Qualifiers: Altered mental status type: transient alteration of awareness Qualified Code(s): R40.4 - Transient alteration of awareness (4) Hypertension Status: Chronic Qualifiers: Hypertension type: primary hypertension Qualified Code(s): I10 - Essential (primary) hypertension (5) Anemia Status: Chronic Qualifiers: Anemia type: unspecified type Qualified Code(s): D64.9 - Anemia, unspecified (6) Venous insufficiency Status: Chronic
[2021-12-07 13:26] VITALS: BP 149/67
== END 2021-12-07 14:00 ==
LOC: MED/SURG
PROVIDERS: ADMIT Internal Medicine; ATTEND Internal Medicine